=== PATIENT | female | born 1980 | race Caucasian/White ===

== ENCOUNTER 2024-02-09 06:10 | Day surgery (SDC) | payer OTHER ==
[2024-02-07 18:11] LABS: HEMATOCRIT 36.6 % (36.0-45.00); HEMOGLOBIN 11.6 g/dL (12.0-15.00); MEAN CELL VOLUME 71.7 fL (80.00-100.00); MEAN CORPUSCULAR HEMOGLOBIN 22.8 pg (27.00-32.0); MEAN CORPUSCULAR HGB CONC 31.8 g/dl (32.0-36.0); PLATELET COUNT 314 K/uL (150-450); RED BLOOD COUNT 5.11 M/uL (4.00-6.00); RED CELL DISTRIBUTION WIDTH 17.7 % (11.5-14.5)
[2024-02-07 18:26] LABS: INR 0.98; PARTIAL THROMBOPLASTIN TIME 25.7 SECONDS (22.0-34.0); PROTHROMBIN TIME 10.7 SECONDS (9.0-11.5)
[2024-02-09] MEDS ORDERED: PROMETHAZINE HCL 50 MG/ML AMPUL IM ONE (11:45)
[2024-02-09] MEDS ORDERED: MORPHINE SULFATE 4 MG/ML VIAL IV PRN (11:45)
[2024-02-09] MEDS ORDERED: POVIDONE-IODINE 118 ML BOTT TOP ONE (12:00)
[2024-02-09] MEDS ORDERED: CEFOXITIN SODIUM 2,000 MG VIAL IV ONE (12:00)
== END 2024-02-09 17:35 | disposition home or self-care (01) ==
LOC: CIR.AMB 06:10
PROVIDERS: ATTEND Obstetrics & Gynecology Maternal & Fetal Medicine
DX: O02.1 Missed abortion (principal)